=== PATIENT | male | born 1990 | race Caucasian/White ===

== ENCOUNTER 2016-11-08 15:56 | Emergency (ER) | payer BC ==
--- NOTE | 2016-11-08 16:21 | ED.PDOC ---
History of Present Illness - General Chief Complaint: Dental/Mouth Stated Complaint: Toothache Time Seen by Provider: 11/08/16 16:19 Source: patient Exam Limitations: no limitations - History of Present Illness Initial Comments: Patient complains of a toothache for two days. He broke a left lower molar and it has been becoming more painful. He doesn't have money to go to the dentist just yet. Pain is throbbing and non-radiating. No fever. No associate sx. No previous episodes. Timing/Duration: other - two days Severity: moderate Improving Factors: nothing Worsening Factors: nothing Associated Symptoms: denies symptoms Allergies/Adverse Reactions: Allergies NO KNOWN ALLERGY Allergy (Verified 11/08/16 16:19) Home Medications: Ambulatory Orders Clindamycin HCl 150 mg PO Q6HR #28 cap 11/08/16 Tramadol HCl 50 mg PO Q6HR PRN #30 tab 11/08/16 Review of Systems - Review of Systems Constitutional: States: no symptoms reported EENTM: States: see HPI Respiratory: States: no symptoms reported Cardiology: States: no symptoms reported Gastrointestinal/Abdominal: States: no symptoms reported Genitourinary: States: no symptoms reported Musculoskeletal: States: no symptoms reported Skin: States: no symptoms reported Neurological: States: no symptoms reported Endocrine: States: no symptoms reported Hematologic/Lymphatic: States: no symptoms reported Physical Exam - Physical Exam General Appearance: Alert Ears, Nose, Throat: other - Left lower molar is fracture. TTP. No swelling in the gingiva or buccal membrane. Neck: non-tender, full range of motion, supple Respiratory: lungs clear Cardiovascular/Chest: regular rate, rhythm Gastrointestinal/Abdominal: normal bowel sounds, non tender, soft Progress - Progress Progress: 11/08/16 16:22 Toradol 30 mg IM x one. Sent home with tramadol RX and clindamycin 11/08/16 16:22 Departure - Departure Clinical Impression: Toothache Disposition: Discharge to Home or Self Care Condition: Good Departure Forms: ED Discharge - Pt. Copy, Patient Portal Self Enrollment Diet: resume usual diet Activity: increase activity as tolerated Prescriptions: Clindamycin HCl 150 mg PO Q6HR #28 cap Tramadol HCl 50 mg PO Q6HR PRN #30 tab PRN Reason: Pain -- Moderate Home Medications: Ambulatory Orders Clindamycin HCl 150 mg PO Q6HR #28 cap 11/08/16 Tramadol HCl 50 mg PO Q6HR PRN #30 tab 11/08/16
[2016-11-08 16:37] VITALS: BP 145/97; TEMP 99.1
[2016-11-08] MEDS ORDERED: KETOROLAC TROMETHAMINE INJ 30 MG/ML VIAL IM ONE (16:37)
[2016-11-08 17:32] VITALS: O2SAT 99
== END 2016-11-08 16:35 | disposition home or self-care (01) ==
LOC: ER 15:56
DX: K08.89 Other specified disorders of teeth and supporting structures (principal)